=== PATIENT | female | born 1985 | race Two or more races ===

== ENCOUNTER 2024-07-12 19:45 | Observation (INO) | payer MEDICAID, SELFPAY ==
[2024-07-12] VITALS (40 sets, daily range): BP systolic 121–125; BP diastolic 71–73; PULSE 66–84; TEMP 36.3; O2SAT 88–100; BMI 28.7
--- NOTE | 2024-07-12 16:40 | ESHP_ITS ---
RE: RUSH MEZA : 1985 DATE OF ADMISSION: 07/12/2024 HISTORY OF PRESENT ILLNESS: This is a 38-year-old 4 para 1-0-2-1 with due date of 07/15/2024 with intrauterine at 39 weeks and 4 days, who presents for induction of labor. The patient's care was complicated by mild hydronephrosis. Her most recent ultrasound on 06/02/2024 showed overall growth at the 42nd percentile with hydronephrosis of the right kidney measuring 7.3 mm and hydronephrosis of the left kidney measuring 7.1 mm overall. No other structural abnormalities were noted. There was adequate amniotic fluid and the plan is for pediatric renal evaluation. The patient has had serial maternal medicine ultrasound throughout her . She has a family history of a child with trisomy 21. Her cell-free DNA was low risk for aneuploidy with a normal AFP. MEDICATIONS: 1. multivitamin 1 p.o. daily. 2. Ferrous sulfate 325 mg 1 p.o. b.i.d. SOCIAL HISTORY: She is . She denies any alcohol, drug use or smoking. PAST MEDICAL HISTORY: Advanced maternal age. OBSTETRIC HISTORY: 2008, 40-week normal vaginal delivery, 6 pound 0 ounce male, no complications; 02/2017, 24-week intrauterine demise, normal vaginal delivery, trisomy 21; 2018, 12 weeks' spontaneous AB with D and C. PAST SURGICAL HISTORY: D and C in 12/2018. REVIEW OF SYSTEMS: She denies any chest pain, palpitations, cough, fever, shortness of breath or lower extremity pain. She denies any headache, change in vision or right upper quadrant pain. PHYSICAL EXAMINATION: VITAL SIGNS: Blood pressure 116/64, heart rate 88, respirations 18, temperature is 98.2, and weight 172 pounds. HEENT: Oropharynx and sclerae are clear. LUNGS: Clear to auscultation bilaterally. HEART: Regular rate and rhythm. ABDOMEN: Gravid, term size consistent with estimated weight 7-1/2 pounds. PELVIC: See RN notes. EXTREMITIES: Nontender. SKIN: No gross rashes or lesions. NEUROLOGIC: No focal deficit. ASSESSMENT AND PLAN: Intrauterine at 39 weeks and 4 days, hydronephrosis, advanced maternal age. Induction of labor. Anticipate spontaneous vaginal delivery. Informed consent was obtained. The patient was made aware of the risks, complications, alternatives, and benefits of operative vaginal delivery and delivery and agrees with these modes of delivery if indicated. DT: 13:47:30 TT: 15:26:00 Ref: [id number] - TID: [id number] MTDD
--- NOTE | 2024-07-12 20:49 | XR_ITS ---
Examination: Complete OB ultrasound greater than 14 weeks Date and time of exam: July 09, 2024 2120 hrs. Indications: Labor induction, unknown presentation Findings: Viable intrauterine single fetus with single amniotic sac presentation cephalic Cardiac motion 148 BPM Placenta anterior grade 3 Umbilical cord insertion seen Amniotic fluid index 6.5 cm Ovaries obscured by the uterus. Composite estimated gestational age based on BPD, head circumference, abdominal circumference, femur length is 36 weeks 4 days Estimated weight 2911 g. Survey of intracranial anatomy, spinal anatomy, abdominal anatomy, four-chamber heart performed with no abnormalities identified. Impression: Viable intrauterine gestation cephalic presentation.
[2024-07-12 21:40] LABS: Basophils % (Auto) 0 % (0-2.5); Eosinophils % (Auto) 1 % (0-10); Hemoglobin 10.7 g/dL (12.0-16.0); Immature Granulocytes % (Auto) 0 % (0-0); Immature Granulocytes Auto 0.01 Thou/mm3 (0.00-0.00); Lymphocytes # (Auto) 1.6 Thou/mm3 (1.0-4.8); Lymphocytes % (Auto) 26 % (10-50); Mean Corpuscular HGB Conc 34.5 g/dl (31.0-37.0); Mean Corpuscular Hemoglobin 30.3 pg (25.0-35.0); Mean Corpuscular Volume 88 fL (80-100); Monocytes # (Auto) 0.6 Thou/mm3 (0.0-0.8); Monocytes % (Auto) 10 % (0-12); Neutrophils % (Auto) 64 % (37-80); Nucleated Red Blood Cell % 0 /100 WBC (0); Platelet Count 209 Thou/mm3 (140-440); RDW Standard Deviation 48.7 fL (36.4-46.3); Red Blood Count 3.53 Miln/mm3 (4.00-5.20); White Blood Count 6.3 Thou/mm3 (3.6-11.0)
[2024-07-12] MEDS: MISOPROSTOL 50 mCg TABLET PO (22:27)
[2024-07-12 23:12] LABS: Syphilis Nonreactive (Nonreactive)
[2024-07-13] VITALS (244 sets, daily range): BP systolic 0–135; BP diastolic 0–75; PULSE 54–99; RESP 16–18; TEMP 36.5–36.8; O2SAT 94–100
[2024-07-13] MEDS: MISOPROSTOL 50 mCg TABLET PO (02:31)
[2024-07-13] MEDS: RINGERS LACTATED 1000 ML 1,000 ML 999 ML IV ×2 (04:36→10:17)
--- NOTE | 2024-07-13 09:46 | PD.LDPN ---
Documentation for date of: 07/13/24 OB Labor Progress Note Pain Control Comments: None Pelvic Exam Dilation (cm): 2 Effacement (%): 50 station: -3 Amniotic membrane status: Intact Contractions Contraction frequency: q 2-3 min Status status: Category l Assessment and Plan Comments: Continue cervical ripening and begin oxytocin as needed. Anticipate .
[2024-07-13] MEDS: DINOPROSTONE 10 MG VAG.SUPP VAGINAL (13:14)
[2024-07-13] MEDS: PANTOPRAZOLE 20 MG TABLET PO (15:38)
[2024-07-14] VITALS (37 sets, daily range): BP systolic 0–119; BP diastolic 0–70; PULSE 57–76; RESP 18–20; TEMP 36.7–37; O2SAT 94–100
--- NOTE | 2024-07-14 07:48 | PD.LDPN ---
Documentation for date of: 07/14/24 OB Labor Progress Note Pain Control Comments: None Pelvic Exam Dilation (cm): 2-3 Effacement (%): 50 station: -3 Amniotic membrane status: Intact Comments: per RN Contractions Contraction frequency: q 2-3 min Status status: Category l Assessment and Plan Comments: Failed induction Pt elects to go home and follow up for repeat trial of induction in 48 hours. Discharge instructions given.
--- NOTE | 2024-07-14 07:49 | PD.LDDS ---
DS: Providers Provider Date of admission: 07/12/24 19:45 Primary care physician: Geoffrey Villarreal MD Admitting Provider: Geoffrey Villarreal MD Attending Provider on Admission: Geoffrey Villarreal MD Attending Provider on DC: Geoffrey Villarreal MD Discharging Provider: Geoffrey Villarreal MD DS: Diagnosis Problem List Completed Was Problem List Reviewed/Reconciled?: Yes Summary/Hosp Course Brief History: Admitted for induction of labor for AMA. Failed induction after trial of Cytotec and Cervidil. Category 1 tracing. Desires to go home and return for a repeat trial of labor in 48 hours. Time Spent with Patient Time attestation: Total time spent providing and/or coordinating discharge services: Exam Vital Signs Temp Pulse Resp BP Pulse Ox O2 Del Method 98.6 F 73 20 106/60 98 Room Air 07/14/24 06:40 07/14/24 06:40 07/14/24 06:40 07/14/24 06:40 07/14/24 02:29 07/13/24 07:30 Discharge Plan Plan Patient Disposition: HOME (Self Care) Patient condition on transfer: Stable Prescriptions/Referrals Prescriptions/Med Rec: Continued prenat.vits,deshawn,[id number]-nxkor Tablet 1 tab PO QDAY Rx Instructions: I tab daily ferrous sulfate [Iron (ferrous sulfate)] 325 mg (65 mg iron) Tablet 325 mg PO 1XD Referrals: Geoffrey Villarreal MD [Primary Care Provider] - Patient/Caregiver Discharge Instructions Discharge Activity: activity as tolerated Other Discharge Activity Instructions:: Keep appointment with OB in office. Induction of labor on 07/16/24. Call [phone] at 0800am for bed availability. Education Materials: Kick Sarina, Antepartum Discharge Print Language: Upper Sorbian Stand Alone Forms: [facility] Award Info., Patient Portal Info Letter Discharge Order Discharge Orders: Discharge (Routine); Ordered 07/14/24 Ordered By: Geoffrey Villarreal Planned Discharge Date 07/14/24
== END 2024-07-14 08:15 | disposition home or self-care (01) ==
PROVIDERS: Admitting Provider Specialist; PCP Specialist; Visit Provider Specialist
DX: O61.0 Failed medical induction of labor (principal); O35.EXX0 Maternal care for other (suspected) fetal abnormality and damage, fetal genitourinary anomalies, not applicable or unspecified; O09.523 Supervision of elderly multigravida, third trimester; Z3A.39 39 weeks gestation of pregnancy
CPT/HCPCS: 36415; 59899; 76805; 85025; 86780; 86850; 86900; 86901; G0378; J7120; A9270

== ENCOUNTER 2024-07-21 17:55 | Inpatient (IN) | payer MEDICAID, SELFPAY ==
[2024-07-21] VITALS (69 sets, daily range): BP systolic 100–149; BP diastolic 54–85; PULSE 60–96; O2SAT 85–100; BMI 30.9
--- NOTE | 2024-07-21 19:20 | PD.LDHP ---
Documentation for date of: 07/21/24 OB Labor/Induct. HPI History of Present Illness History of present illness: H and P dictated in Nuance [id number] History of Present Adequate Care: Yes Meds Home Medications and Allergies Home Medications ?Medication ?Instructions ?Recorded ?Confirmed ?Type prenat.vits,deshawn,umq-haiy-oceum 1 tab PO QDAY 07/12/24 07/21/24 History ferrous sulfate 325 mg (65 mg 325 mg PO 1XD 07/13/24 07/21/24 History iron) tablet (Iron (ferrous sulfate)) Allergies Allergy/AdvReac Type Severity Reaction Status Date / Time No Known Allergies Allergy Verified 07/21/24 17:59 OB Exam Physical Exam Vital signs: Pulse BP 64 127/81 07/21/24 19:08 07/21/24 19:08
--- NOTE | 2024-07-21 19:30 | XR_ITS ---
Examination: age Limited Technique: Limited transabdominal sonographic images pelvis Exam date and time: July 21, 20241958 hrs. Indications: Patient in active labor unknown presentation Findings: Viable intrauterine gestation vertex presentation Cardiac motion 124 BPM Estimated gestational age 38 weeks 6 days Estimated weight 3587.5 g Impression: Viable intrauterine gestation cephalic presentation
[2024-07-21 20:05] LABS: Basophils % (Auto) 0 % (0-2.5); Eosinophils % (Auto) 0 % (0-10); Hematocrit 34.7 % (36.0-46.0); Hemoglobin 11.9 g/dL (12.0-16.0); Immature Granulocytes % (Auto) 0 % (0-0); Immature Granulocytes Auto 0.03 Thou/mm3 (0.00-0.00); Lymphocytes # (Auto) 1.5 Thou/mm3 (1.0-4.8); Lymphocytes % (Auto) 14 % (10-50); Mean Corpuscular HGB Conc 34.3 g/dl (31.0-37.0); Mean Corpuscular Hemoglobin 30.4 pg (25.0-35.0); Mean Corpuscular Volume 89 fL (80-100); Monocytes # (Auto) 0.7 Thou/mm3 (0.0-0.8); Monocytes % (Auto) 7 % (0-12); Neutrophils # (Auto) 8.4 Thou/mm3 (1.8-7.7); Neutrophils % (Auto) 79 % (37-80); Nucleated Red Blood Cell % 0 /100 WBC (0); Platelet Count 198 Thou/mm3 (140-440); RDW Standard Deviation 47.3 fL (36.4-46.3); Red Blood Count 3.92 Miln/mm3 (4.00-5.20); White Blood Count 10.6 Thou/mm3 (3.6-11.0)
--- NOTE | 2024-07-21 20:15 | ESHP_ITS ---
RE: RUSH MEZA : 1985 DATE OF ADMISSION: 07/21/2024 HISTORY OF PRESENT ILLNESS: This is a 38-year-old 4, para 1-0-2-1 with due date of 07/15/2024 with intrauterine at 40 weeks and 6 days who presents for complaint of contractions and is noted to be in early labor. The patient's care was complicated by mild hydronephrosis. Her most recent ultrasound on 06/02/2024 showed overall growth at the 42nd percentile with hydronephrosis of the right kidney measuring 7.3 mm and hydronephrosis of the left kidney measuring 7.1 mm. No other structural abnormalities were noted. She has adequate amniotic fluid and the plan is for pediatric renal evaluation. The patient has had serial maternal medicine ultrasounds throughout the , which have confirmed the above. She has a family history of a child with trisomy 21. Her cell-free DNA test was low risk for aneuploidy and she had a normal alpha-fetoprotein test. The patient was admitted for induction of labor on 07/12/2024; however, the induction failed and she was discharged to home on 07/14/2024. MEDICATIONS: 1. multivitamin 1 tablet p.o. daily. 2. Ferrous sulfate 325 mg 1 tablet p.o. b.i.d. PAST MEDICAL HISTORY: Advanced maternal age. PAST SURGICAL HISTORY: D and C in 12/2018. OBSTETRICAL HISTORY: - 2008, 40-week normal vaginal delivery 6-pound male, no complications. - 02/2017, 24-week intrauterine demise with normal vaginal delivery of a trisomy 21 . - 2018, 12 weeks spontaneous AB with D and C. SOCIAL HISTORY: She is . She denies any alcohol, drug use, or smoking. REVIEW OF SYSTEMS: She denies any chest pain, palpitations, cough, fever, shortness of breath, or lower extremity pain. She denies any headache, change in vision, or right upper quadrant pain. PHYSICAL EXAMINATION: VITAL SIGNS: Blood pressure 120/74, heart rate 88, respirations 18, temperature is 98.6, weight 172 pounds. HEENT: Oropharynx and sclerae are clear. LUNGS: Clear to auscultation bilaterally. HEART: Regular rate and rhythm. ABDOMEN: Gravid, term size, consistent with estimated weight, 7-3/4 pounds. PELVIC: See RN notes. EXTREMITIES: Nontender. SKIN: No gross rashes or lesions. NEUROLOGIC: No focal deficits. ASSESSMENT: Intrauterine at 40 weeks and 6 days, hydronephrosis, advanced maternal age, early labor, anticipate spontaneous vaginal delivery. Informed consent was obtained. The patient has been made aware of the risks, complications, alternatives, and benefits of the proposed procedure and she agrees. She is aware of the risk of operative vaginal delivery, delivery and agrees with these modes of delivery if indicated. PLAN: Pediatric renal evaluation of hydronephrosis. DT: 19:20:00 TT: 20:13:00 Ref: [id number] - TID: [id number]
[2024-07-21 20:43] LABS: Syphilis Nonreactive (Nonreactive)
[2024-07-21 22:16] LABS: Amphetamine/Metham Scrn,Ur OB Negative (Negative); Benzoylecgonine Screen, Ur OB Negative (Negative); Opiate Screen,Urine OB Negative (Negative); THC Screen,Urine OB Negative (Negative)
[2024-07-21] MEDS: RINGERS LACTATED 1000 ML 1,000 ML 100 ML IV (23:35)
[2024-07-22] VITALS (57 sets, daily range): BP systolic 98–134; BP diastolic 54–78; PULSE 59–111; RESP 16–18; TEMP 36.6–36.9; O2SAT 87–100
--- NOTE | 2024-07-22 02:34 | PD.LDPN ---
Documentation for date of: 07/22/24 OB Labor Progress Note Pain Control Comments: Epidural Pelvic Exam Dilation (cm): 10 Effacement (%): 100 station: +2 Amniotic membrane status: Ruptured Comments: Thin meconium Contractions Contraction frequency: q 2-3 min Status status: Category l Assessment and Plan Comments: 2nd Stage Labor Encourage Pushing Anticipate
[2024-07-22] MEDS: MINERAL OIL 30 ML UDC TOP (03:15)
[2024-07-22] MEDS: OXYTOCIN in NS 20 units 20 UNIT/1,000 ML BAG 125 UNIT IV (03:22)
--- NOTE | 2024-07-22 03:44 | ESDS_ITS ---
DS: Providers Provider Date of admission: 07/21/24 17:55 Primary care physician: Geoffrey Villarreal MD Admitting Provider: Geoffrey Villarreal MD Attending Provider on Admission: Geoffrey Villarreal MD Attending Provider on DC: Geoffrey Villarreal MD Discharging Provider: Geoffrey Villarreal MD DS: Diagnosis Problem List Completed Was Problem List Reviewed/Reconciled?: Yes Summary/Hosp Course Brief History: H and P dictated in Nuance [id number] Time Spent with Patient Time attestation: Total time spent providing and/or coordinating discharge services: Exam Vital Signs Pulse BP Pulse Ox 71 113/65 99 07/22/24 03:35 07/22/24 03:35 07/22/24 03:19 Discharge Plan Problem List Was Problem List Reviewed/Reconciled?: Yes Plan Patient condition on transfer: Stable Prescriptions/Referrals Prescriptions/Med Rec: New ibuprofen 600 mg tablet 600 mg PO Q6H PRN (Reason: pain) Qty: 30 0RF No Action prenat.vits,deshawn,qtu-vzni-scdus Tablet 1 tab PO QDAY Rx Instructions: I tab daily ferrous sulfate [Iron (ferrous sulfate)] 325 mg (65 mg iron) Tablet 325 mg PO 1XD Referrals: Geoffrey Villarreal MD [Primary Care Provider] - Patient/Caregiver Discharge Instructions Discharge Activity: activity as tolerated Other Discharge Activity Instructions:: Follow up office 6 weeks. Print Language: Macedonian Stand Alone Forms: [employer] Award Info., Patient Portal Info Letter, Work/Release Restrictions Planned Discharge Date 07/23/24
--- NOTE | 2024-07-22 03:49 | PD.LDDELS ---
Vacuum Assisted Delivery Vacuum Application Vacuum type:: Mityvac Vacuum application:: flexing median Total vacuum time (min):: 1 Maximum pressure (cm Hg):: 50 Cup Placement Flexion point identified:: Yes Cup approp. for head position:: Yes Maternal tissue excluded:: Yes Vacuum Procedure Number of pulls (contractions):: 1 Number of pop-offs:: 0 Recommended range maintained:: Yes Vacuum reduced between pulls:: Yes Advancement made each pull:: Yes Vacuum successful:: Yes Immediate [place] Evaluation Immediate assessment:: caput Hand-off care to:: nursery nurse Data (Lynn) Data : 4 Para: 1 Term: 1 : 0 : 2 Delivery Data (Lynn) Labor Data ROM Date: 07/22/24 ROM Time: 02:00 Rupture Type: SROM Amniotic Fluid: Thin Meconium Delivery Data EDC: 07/15/24 EDC calculated by:: LMP/early US confirmation Labor Onset Stage 1 Date: 07/21/24 Labor Onset Stage 1 Time: 22:00 Labor Onset Stage 2 Date: 07/22/24 Labor Onset Stage 2 Time: 02:15 Delivery Date: 07/22/24 Delivery Time: 03:19 Gestational age (weeks): 41 Gestational age (days): 0 Placenta Delivery Date: 07/22/24 Placenta Delivery Time: 03:21 Delivered by: Geoffrey Villarreal Delivery nurse: Gosia Fierro Other staff at delivery: 2nd Nurse Other staff at delivery: Nursery Nurse Other staff at delivery: Nursery Nurse Other staff at delivery: Yesenia Babb Other staff at delivery: Alvina Velasco Other staff at delivery: Abril Chapa Delivery Method Delivery: Vaginal Delivery Type: Vacuum Presentation: Vertex Position: OA Anesthesia Type Primary Anesthesia: Epidural Placenta Placenta Delivery: Spontaneous Placenta Cultures Obtained: No Placenta Sent for Examination: No Cord Sample: Cord Blood Obtained Episiotomy Episiotomy: None Perineal repair Sutures used for repair: 3.0 Chromic EBL Estimated blood loss (ml): 200 Umbilical Cord Umbilical Vessels: 3 Nuchal Cord: x1 Tightly Body Cord: None Additional Procedures Vacuum assisted vaginal delivery Complications Complications: None Data (Lynn) Data Gender: Male Infant Weight Grams: 3080 1 Minute Total: 8 5 Minute Total: 8
[2024-07-22] MEDS: BENZO/LANO/ALOE (Dermoplast) 60 GM CAN 1 SPRAY TOP (05:09)
[2024-07-22] MEDS: IBUPROFEN TAB 400 MG TABLET 800 MG PO ×2 (05:09→12:41)
--- NOTE | 2024-07-22 07:22 | PC.NURSE ---
No need for MMR consent since pt is rubella immune, pt refused tdap.
[2024-07-22 10:13] LABS: Basophils % (Auto) 0 % (0-2.5); Eosinophils % (Auto) 0 % (0-10); Hematocrit 30.9 % (36.0-46.0); Hemoglobin 10.5 g/dL (12.0-16.0); Immature Granulocytes % (Auto) 1 % (0-0); Immature Granulocytes Auto 0.06 Thou/mm3 (0.00-0.00); Lymphocytes # (Auto) 1.2 Thou/mm3 (1.0-4.8); Lymphocytes % (Auto) 10 % (10-50); Mean Corpuscular Hemoglobin 30.1 pg (25.0-35.0); Mean Corpuscular Volume 89 fL (80-100); Monocytes # (Auto) 0.7 Thou/mm3 (0.0-0.8); Monocytes % (Auto) 6 % (0-12); Neutrophils # (Auto) 10.2 Thou/mm3 (1.8-7.7); Neutrophils % (Auto) 84 % (37-80); Nucleated Red Blood Cell % 0 /100 WBC (0); Platelet Count 170 Thou/mm3 (140-440); RDW Standard Deviation 46.8 fL (36.4-46.3); Red Blood Count 3.49 Miln/mm3 (4.00-5.20); White Blood Count 12.1 Thou/mm3 (3.6-11.0)
[2024-07-22] MEDS: ACETAMINOPHEN 325 MG TABLET 650 MG PO (19:31)
[2024-07-23 00:17] VITALS: BP 116/64; PULSE 66; RESP 16; TEMP 36.7; O2SAT 97
--- NOTE | 2024-07-23 04:45 | ESPR_ITS ---
RE: RUSH MEZA : 1985 DATE OF SERVICE: 07/23/2024 S: day #1, the patient denies any problems or complaints. She is voiding, ambulating, tolerated diet, passing flatus. She denies any excessive vaginal bleeding. O: Vital Signs: Blood pressure 116/64, heart rate 66, respirations 16, temperature 98.0, pulse oximetry 97% on room air. Lungs: Clear to auscultation bilaterally. Heart: Regular rate and rhythm. Abdomen: Fundus is firm. Extremities: Nontender. LABORATORY DATA: Hemoglobin predelivery is 11.9, post delivery is 10.5. A: day 1, status post vacuum-assisted vaginal delivery. P: Discharge home. Discharge instructions given. Follow-up in the office in six weeks. DT: 04:23:51 TT: 04:44:00 Ref: [id number] - TID: [id number]
[2024-07-23 04:53] VITALS: BP 122/76; PULSE 57; RESP 18; TEMP 36.6; O2SAT 97
[2024-07-23 08:30] VITALS: BP 125/78; PULSE 61; RESP 17; TEMP 36.6; O2SAT 97
--- NOTE | 2024-07-23 11:40 | PC.LAC ---
Follow up on mom to see how went overnight. Mom states it went well, she is just tired and ready to go home. Went over cluster feeding and expectations for today. At this time baby in bassinet wrapped in blankets asleep. Mom understood.
--- NOTE | 2024-07-23 11:57 | PC.NURSE ---
according to Skyler CORTEZ, pt has necessary resources for safe discharge
--- NOTE | 2024-07-23 14:36 | PC.SS ---
CAN PUSHER conducted bedside contact with the patient to address nursing referral indicating patient was late to care. Patient introduced self, role and basis of referral. Patient informed CAN PUSHER that she initiated OB services at weeks of with Dr. Morales, [facility]. Patient stated that due to Dr. Morales not possessing privileges at [facility] patient transitioned to Dr. Villarreal. Patient reiterated that she received OB services prior to appointment with Dr. Villarreal. Patient delivered , naturally. is the patient?s 2nd child. Other child is 17 yrs old. Patient is employed [employer], resides with FOB; Chalino Trammell. Patient is aligned with [facility]. Patient is not receiving SNAP or TANF. Patient denies history of alcohol/drug abuse. Patient denies CWS intervention. Patient denies episodes of domestic violence. Patient plans on breast feeding the . Patient has access to appropriate supplies and equipment; to include a car seat. Family will provide transportation upon discharge. Patient describes possessing support system consisting of FOB and extended family. CAN PUSHER provided the patient with community resources. No further intervention required at this time, high school social science teacher will be available to address any further concerns. CAN PUSHER updated bedside nurse.
== END 2024-07-23 12:32 | disposition home or self-care (01) | DRG 560 ==
LOC: S4SX 07-22 03:44 → S4NX 07-22 05:27
PROVIDERS: Admitting Provider Specialist; Visit Provider Specialist
DX: O35.EXX0 Maternal care for other (suspected) fetal abnormality and damage, fetal genitourinary anomalies, not applicable or unspecified (principal); O48.0 Post-term pregnancy; O69.1XX0 Labor and delivery complicated by cord around neck, with compression, not applicable or unspecified; O77.0 Labor and delivery complicated by meconium in amniotic fluid; Z3A.40 40 weeks gestation of pregnancy; Z37.0 Single live birth
CPT/HCPCS: 36415; 59025; 59409; 76815; 80307; 85025; 86780; 86850; 86900; 86901; 94762; J2590; J2795; J7120; A9270

== ENCOUNTER 2025-08-08 19:05 | Observation (INO) | payer MEDICAID, SELFPAY ==
[2025-08-08] VITALS (9 sets, daily range): BP systolic 112; BP diastolic 57; PULSE 75–93; RESP 18–99; TEMP 36.8; O2SAT 98–99
== END 2025-08-08 20:05 | disposition home or self-care (01) ==
PROVIDERS: Admitting Provider Obstetrics & Gynecology; Visit Provider Obstetrics & Gynecology
DX: O36.8130 Decreased fetal movements, third trimester, not applicable or unspecified (principal); O46.93 Antepartum hemorrhage, unspecified, third trimester; Z3A.39 39 weeks gestation of pregnancy
CPT/HCPCS: 59025; 59899

== ENCOUNTER 2025-08-17 16:46 | Observation (INO) | payer MEDICAID, SELFPAY ==
[2025-08-17 16:53] VITALS: BP 129/83; PULSE 96; RESP 20; TEMP 36.3; BMI 33.3
--- NOTE | 2025-08-17 17:01 | XR_ITS ---
Examination: Complete OB ultrasound greater than 14 weeks Date and time of exam: August 17, 2025, 1745 hours INDICATIONS: Decreased movement beginning 3 days ago postdates Findings: Viable intrauterine single fetus with single amniotic sac presentation cephalic Cardiac motion 148 bpm Placenta posterior grade 2 Medical cord insertion seen Amniotic fluid index 12.0 cm spine maternal left Ovaries obscured by bowel gas. Composite estimated gestational age based on BPD, head circumference, abdominal circumference, femur length is 38 weeks 3 days Estimated weight 3466.7 g. Survey of intracranial anatomy, spinal anatomy, abdominal anatomy, four-chamber heart performed with no abnormalities identified. Impression: Viable intrauterine gestation cephalic presentation Estimated gestational age 38 weeks 3 days.
--- NOTE | 2025-08-17 17:01 | XR_ITS ---
Examination: Biophysical profile, ultrasound Date and time of exam: August 17, 2025, 1740 hours INDICATIONS: Decreased movement beginning 3 days ago postdates diagnosis Technique: Multiple transabdominal sonographic images of the pelvis abdomen obtained. Attention is directed to the breathing movement, gross body movement, amniotic fluid volume and tone. Findings: Amniotic fluid index 10.8 cm Total biophysical profile is 8 of 8. breathing movement is 2. Gross body movement is 2. tone is 2. Qualitative amniotic fluid volume is 2 Impression: Biophysical profile is 8 of 8.
== END 2025-08-17 18:20 | disposition home or self-care (01) ==
PROVIDERS: Admitting Provider Obstetrics & Gynecology; Visit Provider Obstetrics & Gynecology
DX: O36.8130 Decreased fetal movements, third trimester, not applicable or unspecified (principal); Z3A.38 38 weeks gestation of pregnancy
CPT/HCPCS: 59025; 59899; 76805; 76819